=== PATIENT | female | born 1965 | race Caucasian/White ===

== ENCOUNTER 2022-09-30 16:08 | Emergency (ER) | payer OTHER ==
[2022-09-30 16:18] VITALS: PULSE 85; RESP 18; BMI 34.9
[2022-09-30] MEDS ORDERED: DEXAMETHASONE SOD PHOSPHATE 10 MG/1 ML VIAL IM ONE (17:28)
[2022-09-30] MEDS ORDERED: DEXAMETHASONE SOD PHOSPHATE 10 MG/1 ML VIAL ONE (17:32)
[2022-09-30 19:00] VITALS: BP 129/80; TEMP 97.9
[2022-09-30 19:20] LABS: BASO % 0.5 % (0-2.0); EOS % 1.1 % (0-4.5); HEMATOCRIT 42.6 % (32.4-45.2); HEMOGLOBIN 14.3 GM/dL (10.7-15.3); LYMPH % 28.3 % (8-40); MCH 26.7 pg (25.7-33.7); MCHC 33.5 g/dl (32.0-36.0); MEAN CELL VOLUME 79.7 fl (80-96); MEAN PLT VOLUME 6.9 fl (7.5-11.1); MONO % 4.7 % (3.8-10.2); NEUT % 65.4 % (42.8-82.8); PLATELET COUNT 331 10^3/uL (134-434); RBC 5.34 M/mm3 (3.60-5.2); WHITE BLOOD COUNT 9.3 K/mm3 (4.0-10.0)
[2022-09-30 19:35] LABS: CALCIUM 9.6 mg/dL (8.5-10.1)
[2022-09-30 19:36] LABS: BLOOD UREA NITROGEN 12.7 mg/dL (7-18)
[2022-09-30 19:39] LABS: CREATININE 0.7 mg/dL (0.55-1.3)
[2022-09-30 19:40] LABS: BILIRUBIN,TOTAL 0.4 mg/dL (0.2-1); TOT PROT 8.4 g/dl (6.4-8.2)
== END 2022-09-30 22:34 | disposition home or self-care (01) ==
LOC: JER 16:08
PROC: 3E023GC Introduction of Other Therapeutic Substance into Muscle, Percutaneous Approach (ICD-10-PCS; principal; 2022-09-30)
DX: J02.8 Acute pharyngitis due to other specified organisms (principal)
CPT/HCPCS: 0241U-QW; 36415; 70491-TC; 80053; 85025; 87070; 87651; 99285-25; J1100; Q9967